=== PATIENT | female | born 1960 | race Caucasian/White ===

== ENCOUNTER 2016-06-10 07:23 | Day surgery (SDC) | payer BC ==
--- NOTE | ~2016-06-10 | EGD ---
EGD REPORT [facility] [address] [address] NAME: NATHALIE AMADO : 60 STATUS : REG [facility]#: [id number] AGE: 55 ADM/REG DATE : 06/10/16 MR#: [id number] REPORT SERV DATE: 06/10/16 DICTATED BY: BECKI HERNÁNDEZ DATE: 06/10/16 REPORT STATUS : Draft TRANSCRIBED BY: [facility] DATE: 06/10/16 Endoscopy Center Patient Name: Nathalie Amado Date of : 1960 Attending MD: BECKI HERNÁNDEZ MD Procedure Date No Time: 06/10/2016 Procedure: Colonoscopy Indications: Surveillance: Personal history of adenomatous polyps on last colonoscopy > 5 years ago Referring MD: CAROLANN GRANADOS Medicines: Propofol per Anesthesia Complications: No immediate complications. Procedure: Pre-Anesthesia Assessment: - ASA Grade Assessment: II - A patient with mild systemic disease. After I obtained informed consent, the scope was passed under direct vision. Throughout the procedure, the patient's blood pressure, pulse, and oxygen saturations were monitored continuously. The CF [id number] was introduced through the anus and advanced to the terminal ileum. The colonoscopy was performed without difficulty. The patient tolerated the procedure well. The quality of the bowel preparation was good. Findings: The perianal and digital rectal examinations were normal. The terminal ileum appeared normal. The colon (entire examined portion) appeared normal. A sessile polyp was found in the ascending colon. The polyp was 6 mm in size. The polyp was removed with a cold snare. Resection and retrieval were complete. Non-bleeding internal hemorrhoids were found during retroflexion and were mild, small and Grade I (internal hemorrhoids that do not prolapse). Impression: - The examined portion of the ileum was normal. - The entire examined colon is normal. - One 6 mm polyp in the ascending colon. Resected and retrieved. - Non-bleeding internal hemorrhoids. Recommendation: - Patient has a contact number available for emergencies. The signs and symptoms of potential delayed complications were discussed with the patient. Return to normal activities tomorrow. Written discharge instructions were provided to the patient. EGD REPORT [address] [address] NAME: NATHALIE AMADO : 60 STATUS : REG [facility] [place] PAT#: [id number] AGE: 55 ADM/REG DATE : 06/10/16 MR#: [id number] REPORT SERV DATE: 06/10/16 DICTATED BY: BECKI HERNÁNDEZ DATE: 06/10/16 REPORT STATUS : Draft TRANSCRIBED BY: [employer] DATE: 06/10/16 - Return to previous diet. - Continue present medications. - Await pathology results. - Repeat colonoscopy in 3 - 5 years for surveillance based on pathology results. - Return to my office as previously scheduled. - Discharge patient to home. Procedure Code(s): --- Professional --- 87595, Colonoscopy, flexible, proximal to splenic flexure; with removal of tumor(s), polyp(s), or other lesion(s) by snare technique Diagnosis Code(s): --- Professional --- K64.0, First degree hemorrhoids D12.2, Benign neoplasm of ascending colon Z86.010, Personal history of colonic polyps CPT copyright 2013 [employer]. All rights reserved. The codes documented in this report are preliminary and upon duct installer review may be revised to meet current compliance requirements. Becki Hernández MD BECKI HERNÁNDEZ MD 06/10/2016 12:49 PM This report has been signed electronically. Number of Addenda: 0 Note Initiated On: 06/10/2016 9:34 AM Scope Withdrawal Time 0 hours 14 minutes 32 seconds [id number] [place] [id number]
[~2016-06-10 07:23] MED LIST: ALEVE220 MG PO; ALPHA LIPOIC300 MG PO; AT25 PO; ATV.5 PO; BALMEX11.3 % TOP; BETA CAROTENE PO; BIOTIN5 MG PO; CAT1 PO; K500 PO; KRILLOIL; LIPOTRIAD1 CAP PO; MOMUD PO; MOVE FREE JOIN1 EACH PO; MULTIPLE VIT PO; MULTIVIT/MIN PO; PERCOCET1 TA2 PO; PHENTERMINE30 MG PO; PRILO PO; PROBIOTIC PO; VITAMIN B-121000 MC1 SL; VITAMIN D31000 UNIT PO; VITC500 PO; ZINC PO
[2016-10-14] MEDS ORDERED: CAT1 PO (11:08)
== END 2016-06-10 23:59 | disposition home or self-care (01) ==
LOC: DMU 07:23
PROVIDERS: Internal Medicine Gastroenterology
PROC: 0DBK8ZX Excision of Ascending Colon, Via Natural or Artificial Opening Endoscopic, Diagnostic (ICD-10-PCS; principal; 2016-06-10 09:30)
DX: Z12.11 Encounter for screening for malignant neoplasm of colon (principal); D12.2 Benign neoplasm of ascending colon; K64.0 First degree hemorrhoids; K21.9 Gastro-esophageal reflux disease without esophagitis; F41.9 Anxiety disorder, unspecified; K58.9 Irritable bowel syndrome, unspecified; Z86.010 Personal history of colon polyps; Z88.1 Allergy status to other antibiotic agents; Z88.8 Allergy status to other drugs, medicaments and biological substances
CPT/HCPCS: 88305

== ENCOUNTER 2016-06-12 07:05 | Day surgery (SDC) | payer BC ==
[2016-06-08 15:39] LABS: BASOPHILS 0.6 %; BASOPHILS ABSOLUTE 0.03 10/3/uL (0.0-0.16); EOSINOPHILS 1.2 %; EOSINOPHILS ABSOLUTE 0.06 10/3/uL (0.0-0.53); HEMATOCRIT 36.6 % (36.0-48.0); HEMOGLOBIN 12.3 g/dL (12.0-16.0); IMMATURE GRANULOCYTES 0.2 %; IMMATURE GRANULOCYTES ABSOLUTE 0.01 10/3/uL (0.0-0.11); LYMPHOCYTES 28.6 %; MEAN CORPUS HGB CONC 33.6 g/dL (32.0-36.0); MEAN CORPUSCULAR HEMOGLOB 30.2 pg (26.0-34.0); MEAN CORPUSCULAR VOLUME 89.9 fL (80-100); MEAN PLATELET VOLUME 10.1 fL (9.2-13.0); MONOCYTES ABSOLUTE 0.39 10/3/uL (0.21-1.20); NEUTROPHILS 61.4 %; PLATELET COUNT 283 10/3/uL (150-400); RBC DISTRIBUTION WIDTH 13.1 % (12.0-16.0); RED CELL COUNT 4.07 10/6/uL (4.0-5.6); WHITE BLOOD CELLS 4.9 10/3/uL (4.5-10.5)
[2016-06-08 15:40] LABS: MANUAL DIFF NO %
[2016-06-08 15:41] LABS: PROTIME (NOT ORD) 12.7 SEC (12.0-14.5)
[2016-06-08 15:42] LABS: PARTIAL THROMBO TIME 25.8 SEC (22.5-37.2)
[2016-06-08 15:54] LABS: CALCIUM, SERUM 9.5 MG/DL (8.5-10.4); CHLORIDE, SERUM 110 MMOL/L (96-112); CO2 (CARBON DIOXIDE) 29 MMOL/L (24-34); CREATININE 0.79 MG/DL (0.55-1.02); GFR AFRICAN AMERICAN 98 ML/MIN (>=60); GFR NON AFRICAN AMERICAN 84 ML/MIN (>=60); GLUCOSE, SERUM 97 MG/DL (60-99); POTASSIUM, SERUM 4.4 MMOL/L (3.5-5.3); SODIUM, SERUM 145 MMOL/L (135-148)
[2016-06-08 15:55] LABS: BUN (BLOOD UREA NITROGEN) 11 MG/DL (6-23)
[2016-06-08 18:22] LABS: PFA (COL/EPI) 97 SEC (72-180)
--- NOTE | ~2016-06-12 | OP ---
Record Of Operation [facility] [address] [place]. [address] NAME: TYRONE KUMARI : 60 STATUS : [facility]#: [id number] AGE: 55 ADM/REG DATE : 06/12/16 MR#: [id number] REPORT SERV DATE: 06/13/16 DICTATED BY: NIGEL HELTON DATE: 06/13/16 REPORT STATUS : Draft TRANSCRIBED BY: MODL DATE: 06/13/16 DATE OF PROCEDURE: 06/12/2016 PREOPERATIVE DIAGNOSIS: Surgical absence of the breast, breast cancer and deformity post breast reconstruction. POSTOPERATIVE DIAGNOSIS: Surgical absence of the breast, breast cancer and deformity post breast reconstruction. PROCEDURE: Bilateral tissue java j2ee application developer exchange to definitive 5th degeneration implants and fat grafting for deformity control. INDICATIONS AND FINDINGS OF THE PROCEDURE: This 55-year-old female who is status post bilateral implant based reconstruction, she initially lost her right tissue java j2ee application developer due to an infection and was rescued with latissimus dorsi technique. She is now appropriate for removal of the tissue java j2ee application developer with differential implant placement and fat grafting. DETAILS OF THE PROCEDURE: The patient was brought to the operating room and after adequate sedation was achieved, she was prepped and draped in usual sterile fashion for the above- described procedure. First, our attention was turned to the abdomen. Stab incisions were made and the abdomen was infiltrated with about 300 mL of wetting solution. Then, using standard fat aspiration technique, approximately 350 mL of fat was aspirated to revolve apparatus. The fat was treated appropriately and then was transferred into 10 mL syringes. Using a topographical map placed before surgery, approximately 140 mL were transferred into the right and 190 mL of fat was transferred into the left. With this completed, she was re- cleansed with dilute Hibiclens solution. Gloves were changed and our attention was turned to the right breast. A crescentic excision of lateral mastectomy site skin and latissimus dorsi skin paddle was then carried out and dissection was carried down to the level of the tissue java j2ee application developer. The tissue java j2ee application developer was subsequently ruptured and removed. A submuscular transcapsular dissection was carried out superiorly and superolaterally. She was checked for hemostasis, irrigated thoroughly with Hibiclens solution, and an inferior drain was placed, and a 420 mm plus implant was placed into the site. This was manipulated into an appropriate position, and the wounds were then closed with a deep layer of 3-0 Vicryl and the multiple layers of Monocryl through to an intracuticular in the skin. Our attention was then turned contralaterally where a similar procedure was carried out. An incision was made in the inframammary crease. Here, a dissection carried down to the level of the tissue java j2ee application developer. The tissue java j2ee application developer was subsequently ruptured and removed. A superior and superolateral capsulotomy was created. She was checked for hemostasis, irrigated with Hibiclens solution, and an inferior drain was placed, and a 495 MH implant was placed into this site. This was manipulated into an appropriate position. The wounds were then closed with multiple layers of Vicryl and Monocryl through to an intracuticular in the skin. The fat injection and aspiration incisions were then closed with 5-0 fast-absorbing gut. She was subsequently cleansed with peroxide. Light dressings were placed, and she was remanded to the recovery room in stable condition. All sponge and needle counts were correct. Record Of Operation [address] [address] NAME: TYRONE KUMARI : 60 STATUS : [facility] PAT#: [id number] AGE: 55 ADM/REG DATE : 06/12/16 MR#: [id number] REPORT SERV DATE: 06/13/16 DICTATED BY: NIGEL HELTON DATE: 06/13/16 REPORT STATUS : Draft TRANSCRIBED BY: QUIN DATE: 06/13/16 SHERI/QUIN Nigel Helton M.D. / [id number] CC: Ulises Hernandez M.D.
[2016-10-14] MEDS ORDERED: CAT1 PO (11:08)
== END 2016-06-12 14:57 | disposition home or self-care (01) ==
LOC: SDC 07:05
PROVIDERS: Surgery Surgery of the Hand
PROC: 0HPU0NZ Removal of Tissue Expander from Left Breast, Open Approach (ICD-10-PCS; 2016-06-12)
PROC: 0HRV0JZ Replacement of Bilateral Breast with Synthetic Substitute, Open Approach (ICD-10-PCS; 2016-06-12)
PROC: 0HPT0NZ Removal of Tissue Expander from Right Breast, Open Approach (ICD-10-PCS; principal; 2016-06-12 09:00)
DX: N65.0 Deformity of reconstructed breast (principal); M19.90 Unspecified osteoarthritis, unspecified site; F41.9 Anxiety disorder, unspecified; K21.9 Gastro-esophageal reflux disease without esophagitis; Z88.8 Allergy status to other drugs, medicaments and biological substances; Z90.710 Acquired absence of both cervix and uterus; Z90.13 Acquired absence of bilateral breasts and nipples; Z85.3 Personal history of malignant neoplasm of breast; Z98.890 Other specified postprocedural states
CPT/HCPCS: 80048; 85025; 85576; 85610; 85730; 93005; C1769; C1789; J0690; J2175; J2250; J2405; J3010